=== PATIENT | male | born 1975 | race Two or more races ===

== ENCOUNTER 2025-04-17 04:19 | Emergency (ER) | payer SELFPAY ==
[2025-04-17] MEDS: Ketorolac 30 MG/ML SDV IM ONE (04:37)
== END 2025-04-17 05:00 | disposition home or self-care (01) ==
LOC: JD.ED 04:19
DX: K02.9 Dental caries, unspecified (principal); Z88.0 Allergy status to penicillin
CPT/HCPCS: 96372; 99282; A9270; J1885